=== PATIENT | female | born 1985 | race Caucasian/White ===

== ENCOUNTER 2017-09-06 10:25 | Emergency (ER) | payer SELFPAY ==
[~2017-09-06] VITALS: Ht 157.5 cm; Wt 85.0 kg
[~2017-09-06 10:25] MED LIST: ACET-8386 PO
[2017-09-06 10:28] VITALS: BP 116/80
--- NOTE | 2017-09-06 12:48 | NUR ---
PT TAKEN TO OVERFLOW 1.
--- NOTE | 2017-09-06 13:40 | NUR ---
PATIENT IS A 32 YO FEMALE BIB SELF FOR LEFT EAR PAIN AWAKE AND ALERT NO ACUTE DISTRESS. TO OVERFLOW 1 FOR MD SAVAGE.
[2017-09-06 13:50] VITALS: BP 116/80
== END 2017-09-06 13:51 | disposition home or self-care (01) ==
LOC: MED 10:25
DX: J06.9 Acute upper respiratory infection, unspecified (principal); H66.92 Otitis media, unspecified, left ear; Z79.899 Other long term (current) drug therapy
CPT/HCPCS: 99283